=== PATIENT | male | born 1960 | race Caucasian/White ===

== ENCOUNTER 2017-02-20 01:37 | Emergency (ER) | payer BC ==
[2017-02-20 01:55] VITALS: BP 157/93
[2017-02-20] MEDS ORDERED: Ketorolac 30 MG/ML SDV IM ONE (02:09)
[2017-02-20] MEDS ORDERED: predniSONE 20 MG Tab PO ONE (02:09)
[2017-02-20] MEDS ORDERED: Cyclobenzaprine 10 MG Tab PO ONE (02:11)
--- NOTE | 2017-02-20 02:28 | EDM.PDOC ---
ED HPI GENERAL MEDICAL PROBLEM - General Chief Complaint: Back Pain or Injury Stated Complaint: SEVERE BACK PAIN Time Seen by Provider: 02/20/17 01:45 Source of Information: Reports: Patient History Limitations: Reports: No Limitations - History of Present Illness INITIAL COMMENTS - FREE TEXT/NARRATIVE: ED ambulatory with c/o low left sciatic pain. Notes hx of chronic intermittent low back pain aggrevated with activity. Reports this started after January 22, had severe "waldo horse in left buttock radiating down left leg, since feels like if sits , sitting on golf ball . tingling sensation lateral calf and foot, relieved with standing. MRI scheduled for Saturday, recent clinic visit with medrol dosepack and robaxin. Finished dose violette yesterday. Unable to sleep tonight. Location: Reports: Back Severity: Moderate Improves with: Reports: Movement Worsens with: Reports: Other (sitting) Associated Symptoms: Reports: No Other Symptoms Treatments [employer]: Reports: NSAIDS, Other (see below) (heating pad, tens, ) Left Lower Back Pain Score (Numeric/FACES): 10 Lower Back Pain Score (Numeric/FACES): 10 - Related Data Allergies Allergy/AdvReac Type Severity Reaction Status Date / Time Penicillins Allergy Cannot Verified 02/20/17 02:05 Remember sulfamethoxazole Allergy Cannot Verified 02/20/17 02:05 [From Bactrim] Remember trimethoprim [From Bactrim] Allergy Cannot Verified 02/20/17 02:05 Remember Home Meds: Home Meds Diclofenac Sodium [Diclofenac Sodium] 75 mg PO BID PRN 02/20/17 [History] Methocarbamol [Robaxin] 750 mg PO Q6HR PRN 02/20/17 [History] Sildenafil Citrate [Sildenafil] 100 mg PO DAILY PRN 02/20/17 [History] Past Medical History Musculoskeletal History: Reports: Back Pain, Chronic - Infectious Disease History Infectious Disease History: Reports: Chicken Pox Social & Family History - Tobacco Use Smoking Status *Q: Never Smoker - Caffeine Use Caffeine Use: Reports: Soda - Alcohol Use Date of Last Drink: 01/22/17 - Recreational Drug Use Recreational Drug Use: No ED ROS GENERAL - Review of Systems Review Of Systems: See Below Constitutional: Reports: No Symptoms HEENT: Reports: No Symptoms Respiratory: Reports: No Symptoms Cardiovascular: Reports: No Symptoms GI/Abdominal: Reports: No Symptoms. Denies: Stool Incontinence : Denies: Incontinence, Urinary Retention Musculoskeletal: Reports: Back Pain, Leg Pain (lateralleft, posterior thigh) Skin: Reports: No Symptoms Neurological: Reports: Paresthesia (left foot with sitting) ED EXAM,LOWER BACK PAIN/INJURY - Physical Exam Exam: See Below Exam Limited By: No Limitations General Appearance: Alert, Moderate Distress (with sitting, ) Eye Exam: Bilateral Eye: EOMI Ears: Normal External Exam Throat/Mouth: Normal Voice Head: Atraumatic, Normocephalic Neck: Normal Inspection Respiratory/Chest: No Respiratory Distress, Lungs Clear Cardiovascular: Normal Peripheral Pulses, Regular Rate, Rhythm GI/Abdominal: Normal Bowel Sounds, Soft (Male) Exam: Deferred Rectal (Males) Exam: Deferred Back Exam: Other (left loewr sacral, SI). No: Paraspinal Tenderness, Vertebral Tenderness Extremities: Normal Inspection, Leg Pain (positive leg raise left) Neurological: Alert, Normal Mood/Affect, Normal Dorsiflexion, Normal Plantar Flexion, Normal Gait, Normal Reflexes, No Motor/Sensory Deficits, Oriented x 3, Straight Leg Raise (L), Other (increased pain left leg with standing). No: Abnormal Gait Psychiatric: Normal Affect, Normal Mood Skin Exam: Warm, Dry, Intact, Normal Color Course - Vital Signs Last Recorded V/S: Last Vital Signs Temp 97.2 F 02/20/17 01:40 Pulse 88 02/20/17 01:40 Resp 19 02/20/17 01:40 BP 157/93 H 02/20/17 01:40 Pulse Ox 100 02/20/17 01:40 - Orders/Labs/Meds Meds: Medications Discontinued Medications Generic Name Dose Route Start Last Admin Trade Name Jamesq PRN Reason Stop Dose Admin Cyclobenzaprine HCl 10 mg 02/20/17 02:11 02/20/17 02:19 Flexeril PO 02/20/17 02:12 10 mg ONETIME ONE Administration Ketorolac Tromethamine 30 mg 02/20/17 02:09 02/20/17 02:19 Toradol IM 02/20/17 02:10 30 mg ONETIME ONE Administration Prednisone 40 mg 02/20/17 02:09 02/20/17 02:19 Prednisone PO 02/20/17 02:10 40 mg ONETIME ONE Administration - Re-Assessments/Exams Free Text/Narrative Re-Assessment/Exam: 02/20/17 02:54 pain improved, able to lie flat, Relaxed conversing with . Departure - Departure Time of Disposition: 02:55 Disposition: Home, Self-Care 01 Condition: Fair Clinical Impression: Sciatica Qualifiers: Laterality: left Qualified Code(s): M54.32 - Sciatica, left side - Discharge Information Instructions: Back Pain, Adult, [id number] Forms: ED Department Discharge Additional Instructions: Stop methocarbomal flexeril 10mg one every 8 hours as needed for spasm #10 percocet 5/325 one every 6 hours as needed for severe pain #12 prednisone 20mg daily x 3 days clinic follow up Saturday
== END 2017-02-20 02:47 | disposition home or self-care (01) ==
LOC: DL.ED 01:37
DX: M54.32 Sciatica, left side (principal); Z79.899 Other long term (current) drug therapy; Z88.0 Allergy status to penicillin; Z88.1 Allergy status to other antibiotic agents; M54.42 Lumbago with sciatica, left side
CPT/HCPCS: 72148; 96372; 99283; A9270; J1885